=== PATIENT | female | born 1995 | race Caucasian/White ===

== ENCOUNTER 2020-12-05 15:59 | Emergency (ER) | payer OTHER ==
[~2020-12-05] VITALS: Ht 170.2 cm; Wt 61.0 kg
[2020-12-05] MEDS ORDERED: KETOROLAC 60MG/2ML VIAL IM ONE (17:00)
[2020-12-05] MEDS ORDERED: T3 PO (17:52)
[2020-12-05 18:37] VITALS: BP 139/87
== END 2020-12-05 18:38 | disposition home or self-care (01) ==
LOC: ER 15:59
DX: S92.354A Nondisplaced fracture of fifth metatarsal bone, right foot, initial encounter for closed fracture (principal); W01.0XXA Fall on same level from slipping, tripping and stumbling without subsequent striking against object, initial encounter; Y93.89 Activity, other specified; Y92.018 Other place in single-family (private) house as the place of occurrence of the external cause
CPT/HCPCS: 73610; 73630; 96372; 99284; J1885